=== PATIENT | female | born 1950 | race Caucasian/White ===

== ENCOUNTER 2016-11-27 11:00 | Inpatient (IN) | payer MEDICARE, OTHER ==
[~2016-11-27] VITALS: Ht 165.1 cm; Wt 104.4 kg
--- NOTE | ~2016-11-27 | OR ---
[facility] 66 [facility] [address] ROOM: [place] [address] LOCATION: [facility] ADMIT DATE: 12/11/2016 OR/Procedure Report DISCHARGE DATE: FAMILY PHYSICIAN: Brett Henry MD ATTENDING PHYSICIAN: Dmitriy Rolle SURGEON: Dmitriy Rolle DO PRESS CLIPPER: DATE OF PROCEDURE: 12/11/2016 PREOPERATIVE DIAGNOSIS: Left knee degenerative arthritis. POSTOPERATIVE DIAGNOSIS: Left knee degenerative arthritis. OPERATION PERFORMED: Left total knee arthroplasty, cemented tibia and femur, using medial parapatellar/subvastus approach. TUBE TRAILER FILLER: None. TOURNIQUET TIME: 22 minutes. ANESTHESIA: Spinal. HARDWARE: Giovanna Persona Knee System, patient's specific implants. Femur size 6, tibia size D. Patelloplasty was performed and not resurfaced. Polyethylene size 10 medial congruent. COMPLICATIONS: None. ANTIBIOTICS: Clindamycin due to allergy. TIMEOUT: Performed. 1 gram IV tranexamic acid given on incision, second gram topically at closure. SPECIMENS: None. ESTIMATED BLOOD LOSS: Less than 50 mL. FLUID ADMINISTERED: See Anesthesia. HISTORY: This is a pleasant, 66-year-old, has persistent knee pain, has failed conservative therapy including physical therapy, braces, and injections. The patient continues to suffer pain and fails activities of daily living. It is limiting quality of life and ADLs. We had a discussion regarding further treatment options as the patient has failed all conservative [facility] 66 Y [address] ROOM: [place] [address] LOCATION: [facility] ADMIT DATE: 12/11/2016 OR/Procedure Report DISCHARGE DATE: FAMILY PHYSICIAN: Brett Henry MD ATTENDING PHYSICIAN: Dmitriy Rolle. The patient wished to proceed with total knee arthroplasty. The risks, benefits, goals and potential complications were discussed. The patient had been through the total joint course and reviewed our online resources in [facility] and then given written handout with the explanations, risks, benefits, and potential treatment complications. Consent signed on the chart. The patient understands the risk of implant recalls; potential for infection up to 2% including deep infection, this could result in multiple surgeries of explant antibiotic spacers and third surgery. The patient understands the risk of fractures; neurovascular injury; damage to arteries, nerves, muscles, tendons; loss of motion; pain; potential to develop a DVT, which could lead to pulmonary embolus and even . The patient has been well informed of the treatment options, risks, benefits, and chance of complications. The patient elects to proceed. DESCRIPTION OF PROCEDURE: The patient was brought back to the operating room theater under anesthesia. The patient was prepped and draped in the usual sterile fashion with the leg exsanguinated and tourniquet inflated. A midline incision starting from the medial aspect of the tibial tubercle approximately 3 fingerbreadths above the superior pole of the patella. Medial parapatellar arthrotomy with subvastus approach exposed the deep capsule. The deep medial capsule was elevated off the medial side of the tibia based on whether they are varus or valgus. Fat pad removed with careful attention not to injure the patellar tendon and the anterior horns of the medial and lateral meniscus were removed. ACL was sacrificed and a retractor was placed protecting the medial and lateral collateral ligaments. The distal cutting block put in position. Appropriate resection taken off the distal femur. After confirmed positioning, slope, proximal tibia resected. Careful attention protecting the collateral ligaments, patellar tendon with bicondylar smooth and dual PCL retractor placed to protect the posterior structures. We then placed a spacer block to confirm adequate bony resections with extension gap. Medial and lateral compartments were cleaned out of any meniscus and soft tissue protecting the collaterals, popliteus, and posterior structures. The anterior and posterior chamfer cuts were made confirming no notching anteriorly. Bony osteophytes removed. A trial femur was placed and using a poly, I floated the tibia confirming intact collateral ligaments and good balancing. If any further releases were needed, those were performed. I confirmed there were no posterior osteophytes of the distal femur, floating technique, I marked the position of the tibia. Final preparation of the femur with lug holes drilled. I then removed the trial femur, placed the tibia, and confirmed axial alignment with PSI and the floating technique. Once satisfied, the trial tibial plate was locked into place confirming with drop mickie appropriate alignment and slope. The final tibia was drilled and cruciate punch performed. With the trials in place, went through range of motion, confirming excellent stability with varus/valgus stress and good stability at 0, 30, and 90 degrees of motion. I confirmed the patella was well tracking after PATIENT'S NAME: ARNIE VALERO [facility] AGE: 66 Y [address] ROOM: [id number] [place], [place] [address] LOCATION: [facility] ADMIT DATE: 12/11/2016 OR/Procedure Report DISCHARGE DATE: FAMILY PHYSICIAN: Brett Henry MD ATTENDING PHYSICIAN: Dmitriy Rolle osteophytes removed. A patelloplasty was performed with no resurfacing. All trials were then removed. The bone was pulsatiled to clean and dry surface. Exparel cocktail using multiple stabs with careful aspiration not to inject intravascularly, staying away from the lateral compartment as to not cause foot drop. The tibia was placed followed by femur, held in full extension with trial poly. Excess cement removed. Reconfirmed stability with trial poly. If PCL well functioning, I used a medial congruent; if PCL at risk for deficiency, a deep-dish polyethylene used. Once the trial poly was removed, confirmed all cement was hardened and excess cement removed. Range of motion confirmed again prior to final poly being locked into place. Aquamantys was used to establish hemostasis with tourniquet deployed. Final poly locked into place. Hemostasis achieved. Wound closure involved #2 Vicryl in a figure-of- eight pattern along the capsulotomy followed by #2 Quill, Monocryl in a simple buried pattern followed by V-Loc Dermabond. Once the Dermabond cured, the staff placed a Mepilex dressing followed by pulling the thigh-high DIANA hose over the wound and insulating the skin to prevent soft tissue cold injury from the [employer]. Please note that SCDs and DIANA hose started preop in the recovery room, continued on the nonoperative site to prevent DVT. Sponge and needle counts were reported correct x3. The patient will be followed by hospitalist, allowed to weight bear as tolerated, with encouraged physical therapy. On the day of surgery, continue prophylactic antibiotics for the first 24 hours. Continue DVT prophylaxis with SCDs, foot pumps, and DIANA hose. Unless contraindicated, they will start full-strength aspirin within 23 hours and continue for a month. CPT 22 will be added to this case secondary to the patient's BMI. This is secondary to increased duration due to excess adipose tissue and required additional personnel and assistance, equipment, and time over a standard BMI patient. DMITRIY ROLLE DO PH/ayel /[id number] d: 12/11/16 1223 t: 12/20/16 1121, OPERATIVE SUMMARY
--- NOTE | ~2016-11-27 | DS ---
PATIENT'S NAME: ARNIE VALERO [facility] AGE: 66 Y [address] ROOM: [address] [place], [place] [address] LOCATION: [facility] ADMIT DATE: 12/11/2016 Discharge Summary DISCHARGE DATE: 12/13/2016 FAMILY PHYSICIAN: Brett Henry MD ATTENDING PHYSICIAN: Nilton Rolle PREOPERATIVE DIAGNOSIS: Left knee degenerative joint disease. POSTOPERATIVE DIAGNOSIS: Left knee degenerative joint disease. FINAL DIAGNOSIS: Left knee osteoarthritis status post left total knee replacement. HOSPITAL COURSE: The patient had unremarkable hospital stay, and meeting her short-term goals with DVT prophylaxis using SCDs, DIANA hose, and aspirin. She met short-term physical therapy goals safely, and was discharged to home to continue outpatient physical therapy. She was followed by the hospitalist to manage her medical comorbidities without complications and was discharged given all written discharge instructions to continue DVT prophylaxis. Instructions on pain management with prescription. Instructions on DVT observation and prevention as well as a script for outpatient therapy. She will follow up in the office in 2 weeks. Notify us if she has any questions or concerns. NILTON ROLLE DO PH/modl /[id number] d: 12/20/16 1427 t: 01/01/17 0729, DISCHARGE SUMMARY
--- NOTE | ~2016-11-27 | HP ---
[facility] 66 Y [address] ROOM: [facility] [place] [address] LOCATION: [facility] ADMIT DATE: 12/11/2016 History & Physical DISCHARGE DATE: FAMILY PHYSICIAN: Brett Henry MD ATTENDING PHYSICIAN: NILTON ROLLE DATE OF SERVICE: CHIEF COMPLAINT: Left knee pain. 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 Nilton Rolle with a diagnosis of end-stage DJD, left knee. When I actually see her, she has undergone a successful left total knee arthroplasty and I have been asked to follow her for medical illness. When I see her, she has no complaints of pain, she has had no nausea, vomiting, chest pain, or shortness of breath. CURRENT MEDICATIONS: 1. Advair 250. 2. Aspirin 81. 3. Lipitor 20. 4. Ferrous sulfate 325. 5. Hydrochlorothiazide 25 mg 2 per day. 6. Mobic 15 mg a day. 7. Singulair 10 mg a day. 8. Multivitamin. 9. Nexium 40 mg a day. 10. Zyrtec 10 as needed. PREVIOUS OPERATIONS: Status post total hysterectomy for menorrhagia, status post colonoscopy, status post cholecystectomy, status post T and A, status post left knee arthroplasty, and status post right carpal tunnel release. SOCIAL HISTORY: Does not smoke. FAMILY HISTORY: Negative for problems with general anesthesia or bleeding disorder. ALLERGIES: [facility] 66 Y [address] ROOM: [address] [address] LOCATION: [facility] ADMIT DATE: 12/11/2016 History & Physical DISCHARGE DATE: FAMILY PHYSICIAN: Brett Henry MD ATTENDING PHYSICIAN: NILTON ROLLE TO CEPHALOSPORINS, CORTICOSTEROIDS, LIDOCAINE, MORPHINE, PENICILLIN, AND SULFA DRUGS. REVIEW OF SYSTEMS: Positive for hypertension, extrinsic asthma, peptic ulcer disease, hyperlipidemia, and osteoarthritis of the knee. PHYSICAL EXAMINATION: GENERAL: Dark-haired female who is oriented to person, place, and time and competent. She is sitting in a chair for the interview and her is present for the interview. HEENT: Shows pupils react to light. TMs not visualized. Posterior pharynx is clear. NECK: Unremarkable. No adenopathy. No thyroid enlargement. LUNGS: Clear without wheeze or rub. HEART: Shows no murmur, gallop, or rub. ABDOMEN: Benign without point tenderness. PELVIC/RECTAL: Exam not done. EXTREMITIES: Dressing, left knee. NEUROLOGIC: Grossly intact without lateralizing signs. ASSESSMENT: 1. End-stage degenerative joint disease, left knee; status post left total knee arthroplasty today, 12/11/2016. 2. Essential hypertension. 3. Extrinsic asthma. 4. History of peptic ulcer disease. 5. Hyperlipidemia. 6. Osteoarthritis. 7. Allergic rhinitis. PLAN: Follow daily and further treatments as indicated. MD GREYSON RAMIREZ/modl /[id number] D: [id number] T: [id number] HISTORY & PHYSICAL
[~2016-11-27 11:00] MED LIST: ASPIRIN EC81 MG PO; HYDROCHLOROTHIA25 MG PO; IRON325 M1 PO; LIPITOR20 M1 PO; MOBIC15 MG PO; NEXIUM40 MG PO; SINGULAIR10 MG PO; TESSALON PERLE100 MG PO; ZYRTEC10 MG PO
[2016-12-11] MEDS ORDERED: ADVAIR 100-501 EACH INH (08:04)
[2016-12-12 05:37] LABS: HEMATOCRIT 37.5 % (33.0-46.0); HEMOGLOBIN 12.1 g/dL (10.0-15.0)
[2016-12-12 08:29] LABS: ALBUMIN 3.1 gm/dL (3.5-5.0); ALK PHOS 54 IU/L (33-138); ALT 34 IU/L (12-78); ANION GAP 10.9 (10.0-19.0); AST 25 IU/L (10-40); BLOOD UREA NITROGEN 18 mg/dL (6-24); CALCIUM 8.4 mg/dL (8.5-10.5); CHLORIDE 104 mMol/L (96-110); CO2 28 mMol/L (22-32); CREATININE 0.8 mg/dL (0.5-1.1); ESTIMATED GFR (MDRD EQUATION) > 60; POTASSIUM 3.9 mMol/L (3.7-5.1); SODIUM 139 mMol/L (135-145); TOTAL BILIRUBIN 0.7 mg/dL (0.0-1.5); TOTAL PROTEIN 5.9 g/dL (6.0-8.4)
[2016-12-13] MEDS ORDERED: ECOTRIN325 MG PO (11:26)
[2016-12-13] MEDS ORDERED: COLACE100 MG PO (11:29)
[2016-12-13] MEDS ORDERED: MIRALAX17 GM PO (11:33)
[2016-12-13] MEDS ORDERED: LYRICA 75MG CAP75 MG PO (11:34)
[2016-12-13] MEDS ORDERED: NORCO 5-325 TA1 EACH PO (11:35)
== END 2016-12-13 13:10 | disposition disaster alternative care site (69) | DRG 470 ==
LOC: G3N 12-11 06:55
PROVIDERS: Family Medicine; ADMIT Orthopaedic Surgery
PROC: 0SRD0J9 Replacement of Left Knee Joint with Synthetic Substitute, Cemented, Open Approach (ICD-10-PCS; principal; 2016-12-11)
DX: M17.12 Unilateral primary osteoarthritis, left knee (principal); I10 Essential (primary) hypertension; E78.5 Hyperlipidemia, unspecified; J45.909 Unspecified asthma, uncomplicated; Z79.82 Long term (current) use of aspirin; Z87.11 Personal history of peptic ulcer disease; Z88.0 Allergy status to penicillin; Z88.2 Allergy status to sulfonamides
CPT/HCPCS: C1713; C1776; J0171; J0735; J1100; J1885; J2250; J2405; J2795; J7040; J7120

== ENCOUNTER → 2016-11-29 | Outpatient (CLI) | payer MEDICARE, OTHER ==
[~2016-11-29] MED LIST changes: +ADVAIR 100-501 EACH INH; +COLACE100 MG PO; +ECOTRIN325 MG PO; +LYRICA 75MG CAP75 MG PO; +MIRALAX17 GM PO; +NORCO 5-325 TA1 EACH PO
== END | disposition disaster alternative care site (69) ==
LOC: GNJRC 10:13
DX: Z01.818 Encounter for other preprocedural examination (principal); M17.12 Unilateral primary osteoarthritis, left knee